=== PATIENT | male | born 1985 | race Caucasian/White ===

== ENCOUNTER 2018-01-30 23:35 | Emergency (ER) | payer BC ==
[~2018-01-30] VITALS: Ht 180.3 cm; Wt 163.6 kg
[2018-01-30 23:49] VITALS: Ht 180.3 cm; Wt 163.6 kg
[2018-01-31] MEDS ORDERED: VOLTAREN75 MG PO (01:38)
[2018-01-31 02:20] VITALS: BP 143/88
== END 2018-01-31 02:20 | disposition home or self-care (01) ==
LOC: D.ER 23:35
DX: M25.561 Pain in right knee (principal)